=== PATIENT | male | born 1960 | race Hispanic/Latino ===

== ENCOUNTER 2016-04-22 14:51 | Emergency (ER) | payer SELFPAY ==
[2016-04-22 15:03] VITALS: BP 158/110; TEMP 99.2; O2SAT 98
[2016-04-22] MEDS ORDERED: methylPREDNISolone SODIUM SUC 125 MG/2 ML VIAL IM ONE (15:07)
--- NOTE | 2016-04-22 15:10 | ED.PDOC ---
History of Present Illness - General Chief Complaint: ENT Problem Stated Complaint: earache/itching Time Seen by Provider: 04/22/16 14:58 Source: patient, RN notes reviewed, Vital Signs reviewed Exam Limitations: language barrier Additional Information: Nurse helped with translating history, exam, diagnosis and plan to patient. - History of Present Illness Initial Comments: Bilateral ear pain and itching for 2 weeks. No other URI symptoms. Timing/Duration: gradual Severity: mild EENT Location: ear (R), ear (L) Prearrival Treatment: over the counter meds Improving Factors: nothing Worsening Factors: nothing Associated Symptoms: denies symptoms Allergies/Adverse Reactions: Allergies NO KNOWN ALLERGY Allergy (Verified 02/03/15 23:38) Home Medications: Ambulatory Orders Valacyclovir HCl [Valtrex] 1 gm PO TID #30 tab 02/03/15 Review of Systems - Review of Systems Constitutional: States: no symptoms reported. Denies: chills, fever, malaise EENTM: States: ear pain. Denies: eye pain, ear discharge, nose congestion, throat pain Respiratory: States: no symptoms reported. Denies: cough, short of breath Cardiology: States: no symptoms reported Gastrointestinal/Abdominal: States: no symptoms reported Musculoskeletal: States: no symptoms reported Skin: States: no symptoms reported Neurological: States: no symptoms reported. Denies: headache Endocrine: States: no symptoms reported Hematologic/Lymphatic: States: no symptoms reported Past Medical History (General) - Patient Medical History Hx Seizures: No Hx Asthma: No Hx Cardiac Disorders: No Hx Diabetes: No Hx Cancer: No Surgical History: no surgical history - Vaccination History Hx Tetanus, Diphtheria Vaccination: No Hx Influenza Vaccination: No Immunizations Up to Date: - unknown - Social History Hx Alcohol Use: No Family Medical History - Family History Mother Family History: Unknown Physical Exam - Physical Exam General Appearance: Alert, Comfortable, No apparent distress, Well Developed, Well Groomed, Well Hydrated, Well Nourished Eye Exam: bilateral normal Ear Exam: bilateral ear: auricle normal, canal normal, TM bulging - and dull, no erythema Nasal Exam: normal inspection Throat Exam: normal mouth inspection, pharynx normal Neck: non-tender, full range of motion, supple, normal inspection Cardiovascular/Respiratory: no respiratory distress Neurologic: no motor/sensory deficits, alert, normal mood/affect, oriented x 3 Skin Exam: normal color, warm/dry Departure - Departure Clinical Impression: Eustachian tube dysfunction Time of Disposition: 15:11 Disposition: Discharge to Home or Self Care Condition: Good Departure Forms: ED Discharge - Pt. Copy, Patient Portal Self Enrollment Instructions: DI for Eustachian Tube Dysfunction-Adult Home Medications: Ambulatory Orders Valacyclovir HCl [Valtrex] 1 gm PO TID #30 tab 02/03/15 Additional Instructions: Take OTC Mucinex 2X/day Gargle warm salt water 3X/days Print Language: Portuguese
== END 2016-04-22 15:42 | disposition home or self-care (01) ==
LOC: ER 14:51
DX: H69.80 Other specified disorders of Eustachian tube, unspecified ear (principal)

== ENCOUNTER 2016-09-12 18:33 | Emergency (ER) | payer SELFPAY ==
--- NOTE | 2016-09-12 18:50 | ED.PDOC ---
History of Present Illness - General Chief Complaint: Skin/Abrasion/Tear Stated Complaint: Skin irritation/burning to low back Time Seen by Provider: 09/12/16 18:47 Source: patient Exam Limitations: no limitations - History of Present Illness Initial Comments: Heriberto Du 56 y/o male with history of shingles a year ago on his right flank stated that he had been having burning on his right flank for the last one week where he has the shingles.No dysuria,no hematuria,no trauma to back. Timing/Duration: other - one week Severity: moderate Improving Factors: nothing Worsening Factors: nothing Associated Symptoms: denies symptoms Allergies/Adverse Reactions: Allergies NO KNOWN ALLERGY Allergy (Verified 02/03/15 23:38) Home Medications: Ambulatory Orders Valacyclovir HCl [Valtrex] 1 gm PO TID #30 tab 02/03/15 Gabapentin 300 mg PO TID #90 cap 09/12/16 Tramadol HCl 50 mg PO TID PRN #30 tab 09/12/16 Review of Systems - Review of Systems Constitutional: States: no symptoms reported EENTM: States: no symptoms reported Respiratory: States: no symptoms reported Cardiology: States: no symptoms reported Gastrointestinal/Abdominal: States: no symptoms reported Genitourinary: States: no symptoms reported Musculoskeletal: States: no symptoms reported Skin: States: no symptoms reported Neurological: States: see HPI, other - neuralgia Endocrine: States: no symptoms reported Hematologic/Lymphatic: States: no symptoms reported Past Medical History (General) - Patient Medical History Hx Seizures: No Hx Asthma: No Hx Cardiac Disorders: No Hx Diabetes: No Hx Cancer: No Hx Other PMH: Yes - mentioned in HPI Surgical History: no surgical history - Vaccination History Hx Tetanus, Diphtheria Vaccination: No Hx Influenza Vaccination: No - Social History Hx Tobacco Use: No Hx Chewing Tobacco Use: No Hx Alcohol Use: No Feels Threatened In Home Enviroment: No Family Medical History - Family History Mother Family History: No Known Physical Exam - Physical Exam General Appearance: Alert, No apparent distress Eye Exam: bilateral normal Ears, Nose, Throat: hearing grossly normal, normal ENT inspection, normal pharynx Neck: non-tender, full range of motion Respiratory: chest non-tender, lungs clear, normal breath sounds, no respiratory distress Cardiovascular/Chest: normal peripheral pulses, regular rate, rhythm, no edema, no murmur Peripheral Pulses: radial,right: 2+, radial,left: 2+ Gastrointestinal/Abdominal: normal bowel sounds, non tender, soft, no organomegaly Back Exam: normal inspection, no CVA tenderness, no vertebral tenderness Extremity: normal range of motion, non-tender, normal inspection Neurologic: no motor/sensory deficits, alert, normal mood/affect, oriented x 3 Skin Exam: normal color, warm/dry, other - well healed scar fom shingles Departure - Departure Clinical Impression: Post herpetic neuralgia Time of Disposition: 18:55 Disposition: Discharge to Home or Self Care Condition: Good Departure Forms: ED Discharge - Pt. Copy, Patient Portal Self Enrollment Instructions: [place] Prescriptions: Gabapentin 300 mg PO TID #90 cap Tramadol HCl 50 mg PO TID PRN #30 tab PRN Reason: Pain Home Medications: Ambulatory Orders Valacyclovir HCl [Valtrex] 1 gm PO TID #30 tab 02/03/15 Gabapentin 300 mg PO TID #90 cap 09/12/16 Tramadol HCl 50 mg PO TID PRN #30 tab 09/12/16
[2016-09-12 18:56] VITALS: TEMP 98.6
[2016-09-12 19:24] VITALS: BP 182/92; O2SAT 98
== END 2016-09-12 19:00 | disposition home or self-care (01) ==
LOC: ER 18:33
DX: B02.29 Other postherpetic nervous system involvement (principal)

== ENCOUNTER 2017-05-24 12:38 | Emergency (ER) | payer SELFPAY ==
[2017-05-24 12:59] VITALS: TEMP 98.6; O2SAT 96
--- NOTE | 2017-05-24 15:00 | ED.PDOC ---
History of Present Illness - General Chief Complaint: ENT Problem Stated Complaint: Bilateral ear pain Time Seen by Provider: 05/24/17 14:57 Source: patient Exam Limitations: no limitations - History of Present Illness Initial Comments: BL EAR PAIN X [address] MENENDEZ. NO DIZZINESS. NO PEREZ. NO VISION CHANGES. NO RECENT URI. PT WONDERS IF HIS BP MAY BE RUNNING HIGH AND CAUSING IT. Severity: moderate EENT Location: ear (R), ear (L) Prearrival Treatment: no prearrival treatment Improving Factors: nothing Worsening Factors: nothing Associated Symptoms: denies symptoms Allergies/Adverse Reactions: Allergies NO KNOWN ALLERGY Allergy (Verified 05/24/17 12:51) Home Medications: Ambulatory Orders Gabapentin 300 mg PO TID #90 cap 09/12/16 Triamterene & Hydrochlorothiaz [Dyazide 37.5-25 mg] 1 cap PO DAILY #30 cap 05/24 Review of Systems - Review of Systems EENTM: Denies: blurred vision, ear discharge, nose pain, nose congestion, throat pain, throat swelling, mouth pain, mouth swelling All other Systems: Reviewed and Negative Past Medical History (General) - Patient Medical History Hx Seizures: No Hx Stroke: No Hx Asthma: No Hx Cardiac Disorders: No Hx Congestive Heart Failure: No Hx Diabetes: No Hx Cancer: No Hx MRSA: No Surgical History: no surgical history - Vaccination History Hx Tetanus, Diphtheria Vaccination: No Hx Influenza Vaccination: No Hx Pneumococcal Vaccination: No - Social History Hx Tobacco Use: No Hx Chewing Tobacco Use: No Hx Alcohol Use: No Family Medical History - Family History Mother Family History: No Known Living Status: Physical Exam - Physical Exam General Appearance: Alert, No apparent distress Eye Exam: bilateral normal Ear Exam: bilateral ear: auricle normal, canal normal, TM normal Nasal Exam: normal inspection Throat Exam: normal mouth inspection, pharynx normal Neck: non-tender, full range of motion, supple, normal inspection, trachea midline Cardiovascular/Respiratory: regular rate, rhythm, no M/R/G, normal peripheral pulses, no JVD, normal breath sounds, no respiratory distress Abdominal Exam: non-tender, no organomegaly Neurologic: no motor/sensory deficits, alert, normal mood/affect, oriented x 3 Skin Exam: normal color, warm/dry Progress - Results/Orders Results/Orders: BP DECREASED FROM 179/98 ON ARRIVAL TO 147/97 W/O MEDS. THERE IS NO CLEAR EAR PATHOLOGY. IT IS LIKELY FROM HIS UNDERLYING HTN. HE DID NOT NEED CLONIDINE IN ER, BP DECREASED W/O. I AM GOING TO START ON DYAZIDE AND HAVE HIM F/U W/ PCP FOR BP AND BL EAR PRESSURE. Departure - Departure Clinical Impression: Hypertension Disposition: Discharge to Home or Self Care Condition: Good Departure Forms: ED Discharge - Pt. Copy, Patient Portal Self Enrollment Instructions: High Blood Pressure Diet: low salt diet Activity: increase activity as tolerated Prescriptions: Triamterene & Hydrochlorothiaz [Dyazide 37.5-25 mg] 1 cap PO DAILY #30 cap Home Medications: Ambulatory Orders Gabapentin 300 mg PO TID #90 cap 09/12/16 Triamterene & Hydrochlorothiaz [Dyazide 37.5-25 mg] 1 cap PO DAILY #30 cap 05/24 Additional Instructions: Please start exercising for 30 minutes, 3 times per week. This will help your blood pressure and overall health. Please follow-up with your regular doctor in 1-2 weeks to recheck and adjust your blood pressure medication. He/she can further evaluate your ear pressure, which will hopefully improve with blood pressure control. Please take the medicine once per day, every day, to help your blood pressure.
[2017-05-24 16:31] VITALS: BP 147/94
== END 2017-05-24 15:10 | disposition home or self-care (01) ==
LOC: ER 12:38
DX: I10 Essential (primary) hypertension (principal)

== ENCOUNTER 2017-05-30 17:27 | Emergency (ER) | payer SELFPAY ==
[2017-05-30] MEDS ORDERED: NITROGLYCERIN 0.4 MG 25 EA TAB SL ONE ×2 (17:47→17:50)
[2017-05-30] MEDS ORDERED: ASPIRIN (CHEWABLE) 81 MG TAB PO ONE (17:47)
--- NOTE | 2017-05-30 17:47 | ED.PDOC ---
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 Timing/Duration: 7-24 hours Severity: moderate Location: other - left chest Activities at Onset: activity Prior Chest Pain/Cardiac Workup: no prior chest pain Worsening Factors: nothing Nitro Today/Relief: no nitro taken today, 0.4 mg x 1, provided by ED Aspirin Treatment Today: no aspirin today Allergies/Adverse Reactions: Allergies NO KNOWN ALLERGY Allergy (Verified 05/30/17 17:45) Home Medications: Ambulatory Orders Triamterene & Hydrochlorothiaz [Dyazide 37.5-25 mg] 1 cap PO DAILY #30 cap 05/24 Amlodipine Besylate 10 mg PO ACBK #30 tab 05/30/17 Aspirin [Baby Aspirin] 81 mg PO QD #1 bottle 05/30/17 Lisinopril 10 mg PO ACBK #30 tab 05/30/17 Nitroglycerin 0.4 mg Tab [Nitrostat] 0.4 mg SL .Q5M #1 bttl 05/30/17 Review of Systems - Review of Systems Constitutional: States: no symptoms reported EENTM: States: no symptoms reported Respiratory: States: no symptoms reported Cardiology: States: see HPI Gastrointestinal/Abdominal: States: no symptoms reported Genitourinary: States: no symptoms reported All other Systems: Reviewed and Negative, No Change from Baseline Past Medical History (General) - Patient Medical History Hx Seizures: No Hx Stroke: No Hx Asthma: No Hx Cardiac Disorders: No Hx Congestive Heart Failure: No Hx Diabetes: No Hx Cancer: No Hx MRSA: No Hx Other PMH: Yes - post herpetic neuralgia Surgical History: no surgical history - Vaccination History Hx Tetanus, Diphtheria Vaccination: No Hx Influenza Vaccination: No Hx Pneumococcal Vaccination: No - Social History Hx Tobacco Use: No Hx Chewing Tobacco Use: No Hx Alcohol Use: No Hx Physical Abuse: No Hx Emotional Abuse: No Family Medical History - Family History Mother Family History: No Known Living Status: Physical Exam - Physical Exam General Appearance: Alert, Comfortable, No apparent distress Eyes, Ears, Nose, Throat Exam: PERRL/EOMI, normal ENT inspection Neck: non-tender, full range of motion, supple Respiratory: chest non-tender, lungs clear, normal breath sounds Cardiovascular/Chest: normal peripheral pulses, regular rate, rhythm, no murmur Peripheral Pulses: radial,right: 2+, radial,left: 2+ Gastrointestinal/Abdominal: normal bowel sounds, non tender, soft Extremity: normal range of motion, non-tender, no calf tenderness Neurologic: alert, oriented x 3 Skin Exam: normal color, warm/dry Progress - Progress Progress: 05/30/17 21:23 Vital Signs - 8 hr 05/30/17 05/30/17 05/30/17 17:30 18:00 18:18 Temperature 99.1 F Pulse Rate [ 92 H 97 H 83 pulse] Respiratory 20 16 18 Rate Blood Pressure 176/109 152/92 145/90 [Right Arm] O2 Sat by Pulse 96 95 93 L Oximetry 05/30/17 05/30/17 05/30/17 18:33 19:29 20:58 Temperature Pulse Rate [ 80 77 76 pulse] Respiratory 20 16 Rate Blood Pressure 138/93 148/89 135/84 [Right Arm] O2 Sat by Pulse 94 L 96 95 Oximetry - Results/Orders Results/Orders: 05/30/17 17:50 IV Care:Saline Lock per Protoc QSHIFT Telemetry .ONCE Sodium Chloride 0.9% (Flush) [Saline Flush Syringe] 10 ml IV PRN PRN EKG Stat Pulse Ox Stat 05/30/17 19:15 EKG STAT Laboratory Results - last 24 hr 05/30/17 05/30/17 05/30/17 17:39 17:39 19:06 WBC 8.4 RBC 5.09 Hgb 15.7 Hct 46.2 MCV 90.7 MCH 30.9 MCHC 34.1 RDW 13.2 Plt Count 230 MPV 8.8 Absolute Neuts (auto) 6.40 Absolute Lymphs (auto) 1.30 Absolute Monos (auto) 0.60 Absolute Eos (auto) 0.00 Absolute Basos (auto) 0.00 Neutrophils % 76.9 Lymphocytes % 15.6 L Monocytes % 6.6 Eosinophils % 0.6 L Basophils % 0.3 PT 11.5 INR 1.020 PTT (SP) 31.6 D-Dimer, Quantitative < 200 Sodium 136 Potassium 4.0 Chloride 102 Carbon Dioxide 25 Anion Gap 13.0 BUN 30 H Creatinine 1.66 H BUN/Creatinine Ratio 18.1 Random Glucose 138 H Serum Osmolality 280.3 Calcium 9.6 Magnesium 2.5 Total Bilirubin 0.8 Direct Bilirubin 0.1 Indirect Bilirubin 0.7 AST 23 ALT 19 Alkaline Phosphatase 83 Creatine Kinase 130 CK-MB (CK-2) 2.5 CK-MB (CK-2) % Not Reportable Troponin I 0.03 < 0.02 B-Natriuretic Peptide < 5.0 Serum Total Protein 8.0 Albumin 4.9 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 - EKG/XRAY/CT EKG: Sinus, no ST T wave changes Comments: heart rate-91 XRAY: chest - no acute abnormalities - Additional EKG/XRAY/Consults EKG #2: Sinus, no ST T wave changes Comments: HR -77,NSR Departure - Departure Clinical Impression: Chest tightness Hypertension Qualifiers: Hypertension type: unspecified Qualified Code(s): I10 - Essential (primary) hypertension Time of Disposition: 21:26 Disposition: Discharge to Home or Self Care Condition: Fair Departure Forms: ED Discharge - Pt. Copy, Patient Portal Self Enrollment Instructions: DI for Chest Pain Prescriptions: Amlodipine Besylate 10 mg PO ACBK #30 tab Aspirin [Baby Aspirin] 81 mg PO QD #1 bottle Lisinopril 10 mg PO ACBK #30 tab Nitroglycerin 0.4 mg Tab [Nitrostat] 0.4 mg SL .Q5M #1 bttl Home Medications: Ambulatory Orders Triamterene & Hydrochlorothiaz [Dyazide 37.5-25 mg] 1 cap PO DAILY #30 cap 05/24 Amlodipine Besylate 10 mg PO ACBK #30 tab 05/30/17 Aspirin [Baby Aspirin] 81 mg PO QD #1 bottle 05/30/17 Lisinopril 10 mg PO ACBK #30 tab 05/30/17 Nitroglycerin 0.4 mg Tab [Nitrostat] 0.4 mg SL .Q5M #1 bttl 05/30/17 Additional Instructions: DO NOT TAKE DYAZIDE;Take new prescription for high blood pressure;KEEP appointment with primary Md 06/07/2017;RETURN TO EMERGENCY ROOM NEEDED
[2017-05-30] MEDS ORDERED: ASPIRIN TABLET 325 MG TAB PO ONE (17:50)
[2017-05-30] MEDS ORDERED: SODIUM CHLORIDE 0.9% (FLUSH) 10 ML SYG IV PRN (17:50)
[2017-05-30] MEDS ORDERED: amLODIPine BESYLATE 5 MG TAB PO ONE (18:32)
[2017-05-30] MEDS ORDERED: LISINOPRIL 10 MG TAB PO ONE (18:32)
--- NOTE | 2017-05-30 18:45 | RAD ---
EXAM: Chest,1 View CLINICAL INDICATION: 56-year-old male with pain. TECHNIQUE: Single view, AP portable chest was obtained. COMPARISON: None. FINDINGS: Unremarkable cardiac and mediastinal silhouette. Heart size is normal. Tortuous thoracic aorta. Lungs are clear without focal opacity, pneumothorax or pleural effusions. The visualized bones are within normal limits. IMPRESSION: No acute cardiopulmonary abnormalities. Electronically signed by: Ashley Moura MD 05/30/2017 6:44 PM CARD SETTER
[2017-05-30 20:59] VITALS: O2SAT 95
[2017-05-30 22:22] VITALS: BP 135/83; TEMP 96.2
== END 2017-05-30 22:21 | disposition home or self-care (01) ==
LOC: ER 17:27
DX: R07.89 Other chest pain (principal); I10 Essential (primary) hypertension

== ENCOUNTER 2017-06-01 19:07 | Emergency (ER) | payer SELFPAY ==
[2017-06-01 19:20] VITALS: TEMP 98.1; O2SAT 96
--- NOTE | 2017-06-01 20:18 | ED.PDOC ---
History of Present Illness - General Chief Complaint: Blood Pressure Problem Stated Complaint: headache, tingling sensation to rt side of eye Time Seen by Provider: 06/01/17 19:28 Source: patient Exam Limitations: language barrier, other - USED [employer] SPEAKING STAFF TO INTERPRET. - History of Present Illness Timing/Duration: unsure - PT IS UNSURE WHEN THE NUMBNESS STARTED, INITALLY HE THOUGHT IT MAY HAVE STARTED OVER THE WEEKEND. THEN HE THOUGHT IT MAY HAVE BEEN PRESENT WHEN HE WAS SEEN LAST WEEK FOR A SHINGLES FLARE. LATER HE ADMITTED HE DID NOT KNOW WHEN IT STARTED. Severity: mild Improving Factors: nothing Worsening Factors: nothing Associated Symptoms: headaches Allergies/Adverse Reactions: Allergies NO KNOWN ALLERGY Allergy (Verified 05/30/17 17:45) Home Medications: Ambulatory Orders Amlodipine Besylate 10 mg PO ACBK #30 tab 05/30/17 Lisinopril 10 mg PO ACBK #30 tab 05/30/17 Nitroglycerin 0.4 mg Tab [Nitrostat] 0.4 mg SL .Q5M #1 bttl 05/30/17 Review of Systems - Review of Systems Constitutional: Denies: chills, fever, malaise, weakness EENTM: Denies: eye pain, blurred vision, tearing, double vision, ear pain, ear discharge, nose pain, nose congestion, mouth pain Respiratory: Denies: cough, short of breath Cardiology: Denies: chest pain, edema, palpitations, syncope Gastrointestinal/Abdominal: Denies: abdominal pain, constipation, diarrhea, nausea, vomiting Genitourinary: States: no symptoms reported Musculoskeletal: Denies: back pain, joint pain, joint swelling, neck pain Skin: States: rash - TO RT FLANK. Denies: dryness, lesions Neurological: States: numbness - TO RIGHT CHEEK, paresthesia Endocrine: States: no symptoms reported Hematologic/Lymphatic: States: no symptoms reported All other Systems: Reviewed and Negative Past Medical History (General) - Patient Medical History Hx Seizures: No Hx Stroke: No Hx Dementia: No Hx Asthma: No Hx Cardiac Disorders: No Hx Congestive Heart Failure: No Hx Hypertension: Yes Hx Diabetes: No Hx Cancer: No Hx MRSA: No Surgical History: no surgical history - Vaccination History Hx Tetanus, Diphtheria Vaccination: No Hx Influenza Vaccination: No Hx Pneumococcal Vaccination: No Immunizations Up to Date: - unknown - Social History Hx Tobacco Use: No Hx Chewing Tobacco Use: No Hx Alcohol Use: No Hx Physical Abuse: No Hx Emotional Abuse: No - Triage Comment ED Triage Comment: pt first arrived to er for bp check, 133/93. Family Medical History - Family History Mother Family History: No Known Living Status: Physical Exam - Physical Exam General Appearance: Alert, Comfortable, Well Developed, Well Groomed, Well Hydrated, Well Nourished Eye Exam: left normal Ears, Nose, Throat: hearing grossly normal, normal ENT inspection, normal pharynx Neck: full range of motion, supple, normal inspection, carotid bruit Respiratory: lungs clear, normal breath sounds, no respiratory distress, no accessory muscle use Cardiovascular/Chest: normal peripheral pulses, regular rate, rhythm Peripheral Pulses: radial,right: 2+, radial,left: 2+ Gastrointestinal/Abdominal: non tender, soft, no organomegaly Back Exam: other - RASH TO RT FLANK, APPEARS TO BE VESICULAR IN A DERMATOMAL PATTERN Extremity: normal range of motion, normal inspection, no calf tenderness Neurologic: alert, normal mood/affect, oriented x 3, 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 REPORTS ABNORMAL SENSATION TO RT CHEEK. RT EYE CLOSES NORMALLY, NO EYE DRIFT. NO DISCONCUGATE GAZE. Progress - Progress Progress: 06/01/17 20:21 HERE WITH RT CHEEK PARESTHESIA WITHOUT HARD NERUOFINDINGS OF UNKNOWN DURATION. AT LEAST 4 DAYS AGO STARTED MAYBE MANY 10. DOES NOT APPEAR TO BE AN ACUTE STROKE. WILL EVAL FOR ANEMIA, ELECTROLYTE DERANGEMENT, INTRACRANIAL MASS. 06/01/17 20:59 CT SHOWS NO MASS, CVA. GIVEN THE DURATION WILL HAVE WORKED UP AN OUTPATIENT. BLOOD WORK IS UNREMARKABLE. - Results/Orders Results/Orders: Laboratory Tests 06/01/17 06/01/17 06/01/17 19:54 19:54 19:54 WBC 8.2 RBC 4.55 L Hgb 14.3 Hct 41.5 L MCV 91.2 MCH 31.4 H MCHC 34.4 RDW 13.1 Plt Count 210 MPV 8.8 Absolute Neuts (auto) 5.50 Absolute Lymphs (auto) 2.00 Absolute Monos (auto) 0.60 Absolute Eos (auto) 0.10 Absolute Basos (auto) 0.10 Neutrophils % 66.5 Lymphocytes % 24.0 Monocytes % 7.3 Eosinophils % 1.6 Basophils % 0.6 Sodium 137 Potassium 3.9 Chloride 101 Carbon Dioxide 27 Anion Gap 12.9 BUN 36 H Creatinine 1.39 H BUN/Creatinine Ratio 25.9 H Random Glucose 96 Serum Osmolality 282.0 Calcium 9.0 Total Bilirubin 0.8 AST 19 ALT 17 Alkaline Phosphatase 76 C-Reactive Protein 0.5 Serum Total Protein 7.2 Albumin 4.3 Globulin 2.9 Albumin/Globulin Ratio 1.5 CT OF THE HEAD WITHOUT ACUTE INTRACRANIAL PROCESS Departure - Departure Clinical Impression: Right facial numbness, Headache, Zoster Disposition: Discharge to Home or Self Care Condition: Fair Departure Forms: ED Discharge - Pt. Copy, Patient Portal Self Enrollment Instructions: DI for Numbness/tingling Diet: resume usual diet Activity: ambulate only with walker Referrals: [facility] [Provider Group] - 1-2 Days Home Medications: Ambulatory Orders Amlodipine Besylate 10 mg PO ACBK #30 tab 05/30/17 Lisinopril 10 mg PO ACBK #30 tab 05/30/17 Nitroglycerin 0.4 mg Tab [Nitrostat] 0.4 mg SL .Q5M #1 bttl 05/30/17
--- NOTE | 2017-06-01 20:52 | CT ---
EXAM DESCRIPTION: Head CLINICAL HISTORY: 56 years Male facial paresthesia COMPARISON: None TECHNIQUE: Noncontrast axial scans of the brain were obtained. Sagittal and coronal reformatted images were performed. This exam was performed according to our departmental dose-optimization program, which includes automated exposure control, adjustment of the mA and/or kV according to patient size and/or use of iterative reconstruction technique. FINDINGS: There is no evidence of acute intracranial hemorrhage, extracerebral fluid collection, hydrocephalus, midline shift, obvious mass effect, or major territorial infarction. There is slight positional asymmetry, with a few beam hardening artifacts on some of the lower slices. Mild cortical sulcal prominence is noted in the upper convexity. Sandoval-white distinction is preserved. There is slight vascular calcification at the base of the brain. The bony calvarium appears intact. Visualized paranasal sinuses and mastoid air cells appear essentially clear. There incidentally appears to be a relatively narrow internal auditory meatus on each side, especially the right. Significance of this is doubtful, without auditory symptoms. Presumed postoperative ocular changes on the left. IMPRESSION: No evidence of acute intracranial hemorrhage. Minor findings as described above. If necessary, further evaluation might be obtained by other means, such as MRI. Electronically signed by: Nakul Lloyd MD 06/01/2017 8:51 PM [facility]
[2017-06-01 21:28] VITALS: BP 156/89
== END 2017-06-01 21:28 | disposition home or self-care (01) ==
LOC: ER 19:07
DX: R51 Headache (principal); R20.0 Anesthesia of skin; B02.9 Zoster without complications; I10 Essential (primary) hypertension

== ENCOUNTER 2019-04-22 05:35 | Emergency (ER) | payer SELFPAY ==
--- NOTE | 2019-04-22 06:04 | ED.PDOC ---
History of Present Illness - General Chief Complaint: Skin/Abrasion/Tear Time Seen by Provider: 04/22/19 06:00 Source: patient - History of Present Illness Initial Comments: 58 yo male with PMH of shingles who presents with cc of rash. Onset about 1 week ago and worsening. Began first on his right lower back and then spread to BL thighs. Reports small slightly painful burning red bumps. Feels similar to when he had shingles 2 years ago - that rash was only on lower back at that time and not on the legs. Rash is slightly pruritic. He has not tried any meds or creams at home for relief. Denies any other acute sx's. No reported hx of eczema. He did change detergents about 1 month ago. His PCP is Debby. Allergies/Adverse Reactions: Allergies NO KNOWN ALLERGY Allergy (Verified 05/30/17 17:45) Home Medications: Ambulatory Orders Amlodipine Besylate 10 mg PO DAILY 04/22/19 Atorvastatin Calcium [Lipitor] 40 mg PO 04/22/19 Lisinopril 10 mg PO DAILY 04/22/19 Valacyclovir HCl 1,000 mg PO TID 7 Days #21 tab 04/22/19 amLODIPine BESYLATE [Norvasc] 10 mg PO DAILY 04/22/19 Review of Systems - Review of Systems Review of Systems: 04/22/19 06:04 as per HPI All other Systems: Reviewed and Negative Past Medical History (General) - Patient Medical History Hx Seizures: No Hx Stroke: No Hx Dementia: No Hx Asthma: No Hx Cardiac Disorders: No Hx Congestive Heart Failure: No Hx Hypertension: Yes Hx Diabetes: No Hx Cancer: No Hx MRSA: No - Vaccination History Hx Tetanus, Diphtheria Vaccination: No Hx Influenza Vaccination: No Hx Pneumococcal Vaccination: No - Social History Hx Tobacco Use: No Hx Chewing Tobacco Use: No Hx Alcohol Use: No Hx Physical Abuse: No Hx Emotional Abuse: No Family Medical History - Family History Mother Family History: No Known Living Status: Physical Exam - Physical Exam General Appearance: Alert, Comfortable, No apparent distress Eye Exam: bilateral normal Ears, Nose, Throat: hearing grossly normal, normal ENT inspection Neck: non-tender, full range of motion, supple, normal inspection Respiratory: chest non-tender, lungs clear, normal breath sounds, no respiratory distress Cardiovascular/Chest: normal peripheral pulses, regular rate, rhythm, no edema, no murmur Peripheral Pulses: radial,right: 2+, radial,left: 2+ Gastrointestinal/Abdominal: non tender, soft, no organomegaly Back Exam: normal inspection, no vertebral tenderness Extremity: normal range of motion, non-tender, no pedal edema, no calf tenderness 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 To right lower back there is a faint erythematous vesicular rash which appears as possible early shingles Progress - Progress Progress: 04/22/19 06:06 Rash -area to right lower back of prior shingles infection appears clinically c/w possible early shingles outbreak. Area to BL anterior thighs appears more as a contact dermatitis vs eczema to me. -discussed with pt - will place on Valtrex 1000 mg PO TID for 7 days and have him f/u closely with PCP. Also advised hydrocortisone 1% cream BID to anterior thigh rash as well -dc home in good condition, return warnings discussed Merrill Lawson MD Billing #[id number] Departure - Departure Clinical Impression: Zoster Qualifiers: Herpes zoster complications: without complications Qualified Code(s): B02.9 - Zoster without complications Time of Disposition: 06:10 Disposition: Discharge to Home or Self Care Condition: Good Departure Forms: ED Discharge - Pt. Copy, Patient Portal Self Enrollment Instructions: Shingles (DC) Diet: resume usual diet Prescriptions: Valacyclovir HCl 1,000 mg PO TID 7 Days #21 tab Home Medications: Ambulatory Orders Amlodipine Besylate 10 mg PO DAILY 04/22/19 Atorvastatin Calcium [Lipitor] 40 mg PO 04/22/19 Lisinopril 10 mg PO DAILY 04/22/19 Valacyclovir HCl 1,000 mg PO TID 7 Days #21 tab 04/22/19 amLODIPine BESYLATE [Norvasc] 10 mg PO DAILY 04/22/19 Additional Instructions: Take the Valtrex as prescribed for Shingles outbreak. You may also apply hydrocortisone 1% topical cream to the rash on your legs for improved healing. Follow up with your primary care doctor in 1-2 weeks is recommended for repeat evaluation or sooner as needed.
[2019-04-22 06:08] VITALS: BP 168/84; TEMP 97.7; O2SAT 99
== END 2019-04-22 06:33 | disposition home or self-care (01) ==
LOC: ER 05:35
DX: B02.9 Zoster without complications (principal); I10 Essential (primary) hypertension; Z79.899 Other long term (current) drug therapy

== ENCOUNTER 2019-05-05 12:06 | Emergency (ER) | payer SELFPAY ==
[2019-05-05] MEDS ORDERED: SODIUM CHLORIDE 0.9% (FLUSH) 10 ML SYG IV PRN (13:20)
--- NOTE | 2019-05-05 13:22 | ED.PDOC ---
History of Present Illness - General Time Seen by Provider: 05/05/19 13:20 Source: patient - History of Present Illness Initial Comments: 58 yo male with PMH of HTN, shingles who presents with cc of right lower back pain. Pt seen here 04/22/19 for similar issue along with rash to the area and to the BL anterior thighs. He was diagnosed with shingles and placed on Valtrex. He reports the rash is now resolved after treatment and his pain is much impro yancy. However, he is still having residual right lower back pain. Reports only when lying on the right side, having burning 4-5/10 severity pain to the area without radiation. He has only tried Tylenol x1 at home with moderate relief. No other meds tried. Denies any new/recurrence of rash. Denies any abd pain, n/v/d, urinary sx's, fevers, sore throat, etc... Denies any acute injury to the back. Allergies/Adverse Reactions: Allergies NO KNOWN ALLERGY Allergy (Verified 05/05/19 15:21) Home Medications: Ambulatory Orders Amlodipine Besylate 10 mg PO DAILY 04/22/19 Atorvastatin Calcium [Lipitor] 40 mg PO DAILY 04/22/19 Lisinopril 10 mg PO DAILY 04/22/19 Valacyclovir HCl 1,000 mg PO TID 7 Days #21 tab 04/22/19 Acetaminophen W/ Codeine [Tylenol W/ CODEINE #3] 1 ea PO Q6H PRN 14 Days #20 05/05/19 Gabapentin 300 mg PO TID PRN 14 Days #30 cap 05/05/19 Review of Systems - Review of Systems Review of Systems: 05/05/19 14:23 as per HPI All other Systems: Reviewed and Negative Past Medical History (General) - Patient Medical History Hx Seizures: No Hx Stroke: No Hx Dementia: No Hx Asthma: No Hx of COPD: No Hx Cardiac Disorders: No Hx Congestive Heart Failure: No Hx Pacemaker: No Hx Hypertension: Yes Hx Thyroid Disease: No Hx Diabetes: No Hx Gastroesophageal Reflux: No Hx Renal Disease: No Hx Cancer: No Hx of HIV: No Hx Hepatitis C: No Hx MRSA: No - Vaccination History Hx Tetanus, Diphtheria Vaccination: No Hx Influenza Vaccination: No Hx Pneumococcal Vaccination: No - Social History Hx Tobacco Use: No Hx Chewing Tobacco Use: No Hx Alcohol Use: No Hx Physical Abuse: No Hx Emotional Abuse: No Family Medical History - Family History Mother Family History: No Known Living Status: Physical Exam - Physical Exam General Appearance: Alert, Comfortable, No apparent distress Eye Exam: bilateral normal Ears, Nose, Throat: hearing grossly normal, normal ENT inspection Neck: full range of motion, supple Respiratory: lungs clear, normal breath sounds, no respiratory distress Cardiovascular/Chest: normal peripheral pulses, regular rate, rhythm, no edema, no murmur Gastrointestinal/Abdominal: non tender, soft, no organomegaly Back Exam: normal inspection, no CVA tenderness, no vertebral tenderness, other - Back appears normal, no rashes noted, no ttp, good full ROM, SLR negative BL Extremity: normal range of motion, non-tender, normal inspection, no pedal edema, no calf tenderness 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 Consider also UTI vs kidney stone vs other -check CBC, BMP, UA 05/05/19 15:52 -CBC, BMP, UA unremarkable -Suspect postherpetic neuralgia. Discussed diagnosis, expected course, and treatment plan with pt. Will give Toradol 30 mg IV here. Advised continued home Tylenol/ibuprofen. Send home with Rx of gabapentin 300 mg TID PRN pain and Tylenol #3 q6h PRN breakthrough pain. F/u closely with PCP. Return warnings discussed. Merrill Lawson MD Billing #[phone] Departure - Departure Clinical Impression: Postherpetic neuralgia Time of Disposition: 15:47 Disposition: Discharge to Home or Self Care Condition: Good Instructions: Shingles (DC) Diet: resume usual diet Prescriptions: Acetaminophen W/ Codeine [Tylenol W/ CODEINE #3] 1 ea PO Q6H PRN 14 Days #20 PRN Reason: Pain Gabapentin 300 mg PO TID PRN 14 Days #30 cap PRN Reason: Pain Home Medications: Ambulatory Orders Amlodipine Besylate 10 mg PO DAILY 04/22/19 Atorvastatin Calcium [Lipitor] 40 mg PO DAILY 04/22/19 Lisinopril 10 mg PO DAILY 04/22/19 Valacyclovir HCl 1,000 mg PO TID 7 Days #21 tab 04/22/19 Acetaminophen W/ Codeine [Tylenol W/ CODEINE #3] 1 ea PO Q6H PRN 14 Days #20 05/05/19 Gabapentin 300 mg PO TID PRN 14 Days #30 cap 05/05/19 Additional Instructions: Continue taking OTC medication for pain such as Tylenol 650 mg every 6 hours and ibuprofen 600 mg every 6 hours as needed. You may take Tylenol #3 as directed for breakthrough pain and gabapentin as well. Do not drive or operate heavy machinery when taking these medications as they make you drowsy. Return if worsening or other concerning symptoms such as blood in the urine, pain with urination, nausea & vomiting, worsening pain, etc... Follow up with your primary care doctor is recommended in 1-2 weeks for repeat evaluation.
[2019-05-05 16:00] VITALS: BP 132/83; TEMP 97.6; O2SAT 98
[2019-05-05] MEDS: KETOROLAC TROMETHAMINE INJ 30 MG/ML VIAL IV ONE (18:36)
== END 2019-05-05 16:00 | disposition home or self-care (01) ==
LOC: ER 12:06
DX: B02.29 Other postherpetic nervous system involvement (principal); M54.5 Low back pain; I10 Essential (primary) hypertension; Z79.899 Other long term (current) drug therapy